=== PATIENT | male | born 1980 | race Caucasian/White ===

== ENCOUNTER → 2021-03-21 | Outpatient (CLI) | payer OTHER ==
[~2021-03-21] VITALS: Ht 177.8 cm; Wt 108.0 kg
[~2021-03-21] MED LIST: DEPO-TESTO100 MG/1 M IM; ZANAFLEX4 M1 PO
[2021-03-21 09:57] VITALS: BP 162/89
--- NOTE | 2021-03-21 10:21 | NUR ---
Pain Clinic Assessment: 1. History of Osteoarthritis: NONE History of Rheumatoid Arthritis: NONE 2. Height: 5 ft. 10 in. 177.8 cm. Weight: 238.0 lb. oz. 107.956 kg. Patient's BMI: 34.1 3. Vital Signs: BP: 162/89 Pulse: 95 Resp: 16 Temp: 02 Sat: 100 ECG Mon: 4. Pain Intensity: 6 5. Fall Risk: Dizziness: N Needs help standing or walking: N Fallen in the last 3 months: N Fall risk comments: 6. Patient on Blood Thinner: None 7. History of Hypertension: N 8. Opioid Therapy greater than 6 weeks: Opiate Contract Signed: 9. Risk Assessment Tool Provided: 0-LOW 10. Functional Assessment Tool: 11. Recreational Drug Use: Never Drug Type: Tobacco Use: Never Smoker Tobacco Type: Amount or Packs/day: How Many Years: Alcohol Use: Yes Frequency: Special Occasions Quant: 1-3
--- NOTE | 2021-03-22 10:47 | HPC ---
[facility] [place] [address] PAIN MANAGEMENT CONSULTATION Name: PETTY BEAL Room #: REG IRIS Felix.#: [id number] Admission: 03/21/21 Attend Phys: Dennis Bess DO Discharge: Date of : 80 Report #: [id number] THIS REPORT FOR: cc: DHARMESH KING [facility] - No family physician/PCP Dennis Bess DO ~ cc: Dharmesh King NP DATE OF SERVICE: 03/21/2021 REFERRING PROVIDER: Dharmesh King NP. CHIEF COMPLAINT: Axial back pain, right lower extremity pain with paresthesias. HISTORY OF PRESENT ILLNESS: As you know, the patient is a very pleasant 40-year-old male reporting longstanding history of low back pain that has progressively worsened. He states pain began 03/29/2019. The patient indicates pain mainly in the low back, which intermittently radiates down the right leg. He followed with Dr. Lyons who provided epidural injections under fluoroscopic guidance, which worked initially, but then stopped having any long-term efficacy. He underwent intraarticular facet injections which provided improvement, but only transiently. Due to lack of improvement with conservative treatment options, the patient was subsequently referred on to Neurosurgery for evaluation. The patient was seen by nurse practitioner, Dharmesh King in consultation on 02/14/2021 to discuss potential surgical options with the patient. It was determined at that visit, the patient should undergo further imaging and evaluation. Imaging was completed, which showed pars defects at the L5-S1 level. The patient was then referred to our clinic to discuss medial branch nerve blocks and radiofrequency lesioning to address facet arthropathy pain and to discuss the possibility of undergoing a spinal cord stimulator trial to help with his chronic lumbar radicular symptoms secondary to the findings at the L5-S1 level. The patient reports today his pain is continuous and constant. He describes the pain as more of an aching, stabbing and intermittent numbness and tingling. Places current pain score 6/10, daily average at 5/10, worst pain has been as 8/10. The patient states the pain is exacerbated with sitting or standing for any length of time. He states that bending over in a forward flexed position of the lumbar spine exacerbates symptoms. Pain is improved with stretching, hot tub therapies. The patient has been referred to our service to discuss treatment options including medial branch nerve blocks and radiofrequency lesioning to address axial back pain due to facet arthropathy and to discuss the possibility of undergoing spinal cord stimulator trial to address lumbar radiculopathy. PAST MEDICAL HISTORY: None. [address] [address] PAIN MANAGEMENT CONSULTATION Name: PETTY BEAL Room #: REG IRIS Pastrana#: [id number] Admission: 03/21/21 Attend Phys: Dennis Bess DO Discharge: Date of : 80 Report #: [id number] PAST SURGICAL HISTORY: Right knee arthroscopy. SOCIAL HISTORY: The patient denies tobacco, IV or illicit drug use. Admits to occasional alcohol beverage. He is retired. He retired on 07/29/2020. He is not working, not receiving workmen's compensation. He is in litigation in regards to pain. He is unaccompanied at today's visit. REVIEW OF SYSTEMS: Positive for low back pain, right lower extremity pain with paresthesias. All other review of systems negative per 12-point review of systems other than those listed in history of present illness. Pain impact score 47/70 indicating moderate interference of daily activities secondary to pain. ALLERGIES: No reported drug allergies. CURRENT MEDICATIONS: 1. Testosterone injections once weekly. 2. Tizanidine 4 mg dose 1 tab p.o. t.i.d. p.r.n. pain. IMAGING: MRI of lumbar spine obtained 06/09/2020 shows chronic appearing bilateral L5 spondylolysis resulting in an 8 mm anterolisthesis of L5 relative to S1. Mild annular disk bulge. No CT evidence of focal disk herniation or central canal stenosis. Bilateral foraminal disk osteophyte formation in conjunction with spondylolisthesis resulting in marked bilateral neural foraminal stenosis with impingement of the L5 nerve roots. PHYSICAL EXAMINATION: GENERAL: Well-developed, well-nourished, well-hydrated 40-year-old male. He appears his stated age, placing current pain score up to 5-6/10. HEENT: Normocephalic, atraumatic. Pupils equal, round and responsive to light. Speech is fluent. He is deemed an excellent historian. He is wearing a mask in compliance with COVID-19 regulations. LUNGS: Appear clear. No wheeze, rhonchi, no rales. CARDIOVASCULAR: Regular. No appreciable gallop, no rub. ABDOMEN: Soft, nontender. EXTREMITIES: Show no clubbing, no cyanosis and no edema. MUSCULOSKELETAL: Lower extremity strength equal and symmetrical, 5/5. Intact to light touch from L1 through S2 dermatomes. Seated straight leg raising negative. Supine straight leg raising positive on the right. ABEL test is negative. Modified Gaenslen's positive for axial low back pain. Ankle clonus negative. Babinski is negative. Deep tendon reflexes equal and symmetrical in the lower extremities 2+/4 at patella and Achilles. Lumbar provocation testing is met with slight increase in pain mainly with forward flexion, though extension also exacerbates symptoms. [facility] [place] [address] PAIN MANAGEMENT CONSULTATION Name: PETTY BEAL Room #: REG IRIS Zeina#: [id number] Admission: 03/21/21 Attend Phys: Dennis Bess DO Discharge: Date of : 80 Report #: [id number] ASSESSMENT: 1. Symptomatic lumbar radiculopathy. 2. Severe neural foraminal stenosis of lumbar spine. 3. Spondylolisthesis of L5 on S1. 4. Severe facet arthropathy of lumbar spine. 5. Chronic intractable pain. PLAN: 1. Based on today's physical exam and history the patient has provided, the description the patient uses in regards to pain as well as the 2 discrete locations of symptoms, 1 in the axial back due to facet arthropathy of lumbar spine, this is the source of the patient's axial back symptoms. He is also suffering from lumbar radiculopathy secondary to neural foraminal stenosis at the L5-S1 level with radiation along the L5 nerve root on the right side. We discussed with the patient the treatment options for both the axial back pain for which the patient is reporting the greatest amount of discomfort and his lumbar radiculopathy today. The following was discussed with the patient. We discussed physical therapy, stretching exercises and core strengthening as a treatment approach to address both facet arthropathy and his lumbar radiculopathy. We discussed medication management utilizing nonsteroidal anti-inflammatories for his baseline pain control and the addition of a neuropathic medication to address his lumbar radiculopathy. We discussed medial branch nerve blocks and radiofrequency lesioning as a treatment option to address axial back pain due to facet arthropathy at the L5-S1 level. We also discussed treatment for lumbar radiculopathy involving a spinal cord stimulator trial to address symptoms per the request of the Neurosurgery team. We also discussed surgical options with the patient, which they are trying to avoid. After reviewing risks and benefits of all proposed treatment options, the patient chose to move forward with medial branch nerve blocks to address axial back pain. 2. The patient will be sent for x-ray imaging of the lumbar spine. I am requesting flexion and extension films of the lumbar region to address the spondylolisthesis at L5-S1. We have received imaging of the lumbar spine in a static position. This does not provide us information whether or not a pathologic movement is occurring at this level. We will have the patient undergo the x-ray imaging review once available. 3. The patient and I discussed we will begin the authorization process for him to undergo medial branch nerve blocks to address the L3, L4, L5 medial branch nerves of the lumbar spine collectively. This would be done in a bilateral nature to address his axial back symptoms. We will begin that process immediately. It could take anywhere from 4-7 working days to receive this authorization. We will schedule the patient back once the authorization has been completed. 4. In regards to the patient's lumbar radiculopathy, the patient was referred to our clinic to discuss the possibility of undergoing spinal cord stimulator trial implantation given the fact that epidural injections in the past have been [address] [address] PAIN MANAGEMENT CONSULTATION Name: PETTY BEAL Room #: REG CLMallory Pastrana#: [id number] Admission: 03/21/21 Attend Phys: Dennis Bess DO Discharge: Date of : 80 Report #: [id number] unsuccessful in alleviating symptoms for custodial. He wishes to delay this option as he is more concerned about his axial back symptoms at this time, though will wish to revisit this issue if his axial back symptoms are improved with the medial branch nerve blocks and radiofrequency lesioning proposed today. 5. No medication changes made at today's visit. The patient will continue current medical therapy as prior prescribed. 6. We plan to see the patient back in followup visit once we have achieved authorization to undergo the medial branch nerve blocks bilaterally at the L3, L4, L5 levels. If these are unsuccessful, move forward with a radiofrequency lesioning. 7. We wish to thank nurse practitioner, Dharmesh King for the opportunity to see this patient in consultation. We will keep you apprised of his response to treatment as we address both his axial back pain due to facet arthropathy and his chronic lumbar radiculopathy involving low back and right lower extremity with possible spinal cord stimulator trial implantation. Again, we wish to thank you for the opportunity to see the patient in consultation. <ELECTRONICALLY SIGNED> By: Dennis Bess DO 03/22/21 1047 [id number] Dennis Bess DO /nt
== END ==
LOC: PAIN 03-14 10:26
PROVIDERS: ATTEND Anesthesiology Pain Medicine
DX: M54.16 Radiculopathy, lumbar region (principal); M48.061 Spinal stenosis, lumbar region without neurogenic claudication; M43.17 Spondylolisthesis, lumbosacral region; G89.4 Chronic pain syndrome; Z79.899 Other long term (current) drug therapy; Z79.891 Long term (current) use of opiate analgesic

== ENCOUNTER → 2021-04-25 | Outpatient (CLI) | payer OTHER ==
[~2021-04-25] VITALS: Ht 177.8 cm; Wt 110.0 kg
[2021-04-25 09:18] VITALS: BP 157/85
--- NOTE | 2021-04-25 09:36 | NUR ---
Pain Clinic Assessment: 1. History of Osteoarthritis: NONE History of Rheumatoid Arthritis: NONE 2. Height: 5 ft. 10 in. 177.8 cm. Weight: 242.6 lb. oz. 110.043 kg. Patient's BMI: 34.8 3. Vital Signs: BP: 157/85 Pulse: 96 Resp: 18 Temp: 02 Sat: 97 ECG Mon: 4. Pain Intensity: 6 5. Fall Risk: Dizziness: N Needs help standing or walking: N Fallen in the last 3 months: N Fall risk comments: 6. Patient on Blood Thinner: None 7. History of Hypertension: N 8. Opioid Therapy greater than 6 weeks: Opiate Contract Signed: 9. Risk Assessment Tool Provided: 0-LOW 10. Functional Assessment Tool: 47/ 11. Recreational Drug Use: Never Drug Type: Tobacco Use: Never Smoker Tobacco Type: Amount or Packs/day: How Many Years: Alcohol Use: Yes Frequency: Quant:
--- NOTE | 2021-04-26 07:58 | HPC ---
[facility] [place] [address] PAIN MANAGEMENT CONSULTATION Name: PETTY BEAL Room #: REG IRIS BarriosReneeHarrisRenee#: [id number] Admission: 04/25/21 Attend Phys: Dennis Bess DO Discharge: Date of : 80 Report #: [id number] THIS REPORT FOR: cc: DHARMESH KING [facility] - No family physician/PCP Dennis Bess DO ~ cc: Dharmesh King DATE OF SERVICE: 04/25/2021 REFERRING NURSE PRACTITIONER: Dharmesh King NP CHIEF COMPLAINT: Axial back pain and right lower extremity pain with paresthesias. HISTORY OF PRESENT ILLNESS: As you know, the patient is a very pleasant 40-year-old male with longstanding history of low back pain that has progressively worsened. He sought evaluation through neurosurgery who advised the patient's surgical options would not be recommended at this time. He was referred to our clinic to trial medial branch nerve blocks and possible radiofrequency lesioning to address his axial back symptoms. He has also been provided information about spinal cord stimulator to address the right lower extremity pain and paresthesias. Given the fact the patient is now a surgical candidate for lumbar radiculopathy. The patient was seen in consultation per the request of nurse practitioner Dharmesh King 03/21/2021 where he was diagnosed with severe facet arthropathy of lumbar spine, lumbosacral spondylosis with radicular pain leading to chronic and intractable symptoms involving the axial back. He was also given the diagnosis of symptomatic lumbar radiculopathy secondary to severe neural foraminal stenosis and given information in regards to spinal cord stimulator technology. He returns today in followup visit having received authorization to undergo the first in the series of medial branch blocks to address axial back pain due to facet arthropathy. If the medial branch blocks are successful in alleviating the patient's pain, we will then move forward with radiofrequency lesioning medial branch nerves of the lumbar spine. ALLERGIES: No reported drug allergies. CURRENT MEDICATIONS: Testosterone and tizanidine. SOCIAL HISTORY: The patient denies tobacco, IV or illicit drug use. Admits to occasional alcohol beverage. He is retired, retired in 07/29/2020. He is not working, not receiving workmen's compensation, unaccompanied today. IMAGING: No new imaging available. PHYSICAL EXAMINATION: [address] [address] PAIN MANAGEMENT CONSULTATION Name: PETTY BEAL Room #: REG [facility] [id number] Admission: 04/25/21 Attend Phys: Dennis Bess DO Discharge: Date of : 80 Report #: [id number] VITAL SIGNS: Blood pressure 157/85, pulse is 96, respiratory rate 18 and unlabored. The patient is 97% on room air. Height 5 feet 10 inches tall, weight 242.6 pounds, BMI calculated 34.8. GENERAL: Well-developed, well-nourished, well-hydrated 40-year-old male, appearing stated age, placing current pain score 6/10. HEENT: Normocephalic, atraumatic. Pupils equal, round and responsive to light. He is wearing a mask in compliance with COVCO-19 regulations. EXTREMITIES: Show no clubbing, no cyanosis, no edema. MUSCULOSKELETAL: Lower extremity strength is symmetrical again today 5/5. Seated straight leg raising is negative. Supine straight leg raising positive on the right. Fabere's test is negative. Modified Gaenslen's positive for axial low back pain. Lumbar provocation testing including extension, rotation, lateral flexion all intensify axial back pain. ASSESSMENT: 1. Severe facet arthropathy, lumbar spine. 2. Lumbosacral spondylosis of the lumbar spine. 3. Chronic symptomatic lumbar radiculopathy (nonsurgical). 4. Severe neural foraminal stenosis of lumbar spine. 5. Spondylolisthesis of L5 and S1. PLAN: 1. The patient returns today in followup visit to undergo medial branch blocks to address the L3, L4 and L5 medial branch nerves of the right lumbar spine. This is the source of the patient's current lumbar axial back pain. The patient has sought evaluation through neurosurgery and they have advised trial conservative options. He was seen in consultation in our clinic on 03/21/2021 and provided today's appointment after receiving authorizations to have the patient be able to undergo the medial branch blocks requested. He returns today with pain level of 6/10 requesting to undergo these injections in hopes of improving pain. The patient has been advised of the risks and the benefits of the procedure, states understood and wished to proceed. 2. The patient was given a prescription for x-ray imaging, I did wish to further evaluate a grade I spondylolisthesis and make sure that there was no significant pathologic movement. He did not undergo the imaging study. We will hold off on that imaging study as we begin the process of treatment, we may ultimately need that study if his symptoms do not improve. 3. The patient has requested and we have provided a refill of his tizanidine 4 mg dose 1 tab p.o. b.i.d. p.r.n. muscle spasm. I have given the patient #60 tablets to take as needed for muscle spasming. He is not to drive or operate heavy equipment while on that medication. 4. We plan to see the patient back in followup visit in 2 weeks. At that time, review the efficacy of the right L3, L4 and L5 medial branch nerve blocks provided today and determine if the next in the series of injection should be performed. If these are both successful in alleviating his low back symptoms, we would recommend radiofrequency lesioning of the right L3, L4 and L5 medial [facility] [address] [place] [address] PAIN MANAGEMENT CONSULTATION Name: LARISSA BEALH Room #: REG IRIS Pastrana#: [id number] Admission: 04/25/21 Attend Phys: Dennis Bess DO Discharge: Date of : 80 Report #: [id number] branch nerves. The patient is agreeable. PROCEDURE NOTE: DESCRIPTION OF PROCEDURE: Right L3, L4 and L5 lumbar medial branch blocks under fluoroscopic guidance. This is the first of 2 diagnostic medial branch blocks on the right side that the patient is undergoing. After obtaining written consent, the patient was taken back to the fluoroscopy suite and placed in a prone position on the fluoroscopy table with a pillow under the abdomen to decrease the lumbar lordosis. The skin overlying the lumbosacral area was prepped and draped in an aseptic fashion. The L4 transverse process corresponding the L3 medial branch nerve and the L5 transverse process corresponding the L4 medial branch nerve on the right side was visualized under AP fluoroscopy. The skin and subcutaneous tissue overlying the target site(s) of injection were anesthetized using 2 mL of 1% lidocaine. A 22 gauge 3.5 inch spinal needle with a bent tip was advanced under fluoroscopic guidance using a superior to inferior and lateral to medial approach to the dorsal, superior and medial aspect of the base of the transverse process(es). The needles were then directed ventral, medial and caudad to reach the target location(s). An oblique view facilitated needle placement with properly positioned needles(s) in the middle of the "eye" of the Hossein dog for the medial branch block(s). At each site the needle(s) rested on periosteum. After negative aspiration for heme or CSF, 1 mL of bupivacaine 0.5% was slowly injected at each site to avoid forcing the solution away from the target points(s). The needle(s) were then removed. The L5 dorsal ramus block on the right side was performed using a slightly oblique approach under fluoroscopic guidance, placing the needle within the groove between the sacral site and the superior articular process of S1. The needle rested on periosteum. After negative aspiration for heme or CSF, 0.0 mL of Omnipaque dye was injected at under live fluoroscopy, demonstrating absence of vascular uptake. After negative aspiration for heme or CSF, 1 mL of bupivacaine 0.5% was slowly injected to avoid forcing the solution away from the target point. The needle was then removed. Sterile bandages were placed over the injection site. There were no apparent complications. The patient tolerated the procedure well and was carefully escorted to the recovery room in stable condition. The [address] [address] PAIN MANAGEMENT CONSULTATION Name: PETTY BEAL Room #: REG IRIS Pastrana#: [id number] Admission: 04/25/21 Attend Phys: Dennis Bess DO Discharge: Date of : 80 Report #: [id number] was 6/10 before the procedure and 4/10, 10 minutes after the procedure. After meeting discharge criteria, the patient was discharged home. <ELECTRONICALLY SIGNED> By: Dennis Bess DO 04/26/21 0758 [id number] Dennis Bess DO /nt
== END | disposition home or self-care (01) ==
LOC: PAIN 06:54
PROVIDERS: ATTEND Anesthesiology Pain Medicine
DX: M47.816 Spondylosis without myelopathy or radiculopathy, lumbar region (principal); M47.817 Spondylosis without myelopathy or radiculopathy, lumbosacral region; M54.16 Radiculopathy, lumbar region; G89.29 Other chronic pain; M48.061 Spinal stenosis, lumbar region without neurogenic claudication; M43.16 Spondylolisthesis, lumbar region; Z98.890 Other specified postprocedural states; Z79.899 Other long term (current) drug therapy

== ENCOUNTER → 2021-05-09 | Outpatient (CLI) | payer OTHER ==
[~2021-05-09] VITALS: Ht 177.8 cm; Wt 110.5 kg
[2021-05-09 09:16] VITALS: BP 165/82
--- NOTE | 2021-05-09 09:26 | NUR ---
Pain Clinic Assessment: 1. History of Osteoarthritis: NONE History of Rheumatoid Arthritis: NONE 2. Height: 5 ft. 10 in. 177.8 cm. Weight: 243.6 lb. oz. 110.496 kg. Patient's BMI: 35.0 3. Vital Signs: BP: 165/82 Pulse: 94 Resp: 20 Temp: 02 Sat: 98 ECG Mon: 4. Pain Intensity: 7 5. Fall Risk: Dizziness: N Needs help standing or walking: N Fallen in the last 3 months: N Fall risk comments: 6. Patient on Blood Thinner: None 7. History of Hypertension: N 8. Opioid Therapy greater than 6 weeks: N Opiate Contract Signed: 9. Risk Assessment Tool Provided: 0-LOW 10. Functional Assessment Tool: 11. Recreational Drug Use: Never Drug Type: Tobacco Use: Never Smoker Tobacco Type: Amount or Packs/day: How Many Years: Alcohol Use: Yes Frequency: Quant:
--- NOTE | 2021-05-09 14:38 | HPC ---
[facility] [address] [place] [address] PAIN MANAGEMENT CONSULTATION Name: PETTY BEAL Room #: REG IRIS BarriosReneeHarrisRenee#: [id number] Admission: 05/09/21 Attend Phys: Dennis Bess DO Discharge: Date of : 80 Report #: [id number] THIS REPORT FOR: cc: DHARMESH KING FAM - No family physician/PCP Dennis Bess DO ~ cc: Dharmesh King DATE OF SERVICE: 05/09/2021 CHIEF COMPLAINT: Axial back pain, right lower extremity pain. HISTORY OF PRESENT ILLNESS: As you know, the patient is a very pleasant 40-year-old male with longstanding history of chronic low back pain, right buttock and posterolateral thigh pain. He has successfully completed medial branch nerve blocks to address severe facet arthropathy and lumbosacral spondylosis of the lumbar region on the right with good benefit. He reports improvement in symptoms of greater than 70-80% with the medial branch nerve blocks. He received about a 6-hour improvement in overall pain with those injections. He returns today in followup visit for the 2nd in the series of medial branch nerve blocks. If these are then successful, plan is to move forward with radiofrequency lesioning of the L3, L4, L5 medial branch nerves on the right side. The patient has returned today with a pain level of 7/10, requesting medial branch nerve block to address the L3, L4, L5 medial branch nerves today. ALLERGIES: No known drug allergies. CURRENT MEDICATIONS: Tizanidine and testosterone. SOCIAL HISTORY: The patient denies tobacco, IV, or illicit drug use. Admits to occasional alcohol beverage. He is retired, retired in 07/2020, is not receiving workmen's compensation, unaccompanied today. IMAGING: No new imaging available. PHYSICAL EXAMINATION: VITAL SIGNS: Blood pressure 165/82, pulse is 95, respiratory rate 20, unlabored. The patient is 98% on room air. Height 5 feet 10 inches tall, weight 243.6 pounds, BMI calculated 35.0. GENERAL: Well-developed, well-nourished, well-hydrated exogenously obese 40-year-old male, appearing stated age, pain is rated today 7/10. HEENT: Normocephalic, atraumatic. Pupils are round and responsive, wearing a mask in compliance with COVID-19 regulations and hospital restrictions. EXTREMITIES: Show no clubbing, no cyanosis, no edema. MUSCULOSKELETAL: Lower extremity strength is symmetrical again today 5/5. Modified Gaenslen's positive for axial low back pain[place] [address] PAIN MANAGEMENT CONSULTATION Name: PETTY BEAL Room #: [facility]..#: [id number] Admission: 05/09/21 Attend Phys: Dennis Bess DO Discharge: Date of : 80 Report #: [id number] testing including extension, rotation, lateral flexion to the right increases axial back symptoms. Straight leg raising is negative in the seated position, positive in the supine position. ASSESSMENT: 1. Severe facet arthropathy of the lumbar spine. 2. Lumbosacral spondylosis of the lumbar spine. 3. Chronic lumbar radiculopathy, nonsurgical. 4. Severe neural foraminal stenosis of lumbar spine. 5. Spondylolisthesis of L5 and S1. PLAN: 1. The patient returns today in followup visit to undergo medial branch nerve blocks to address the right L3, L4, L5 medial branch nerves respectively. He underwent the medial branch blocks at the last visit, reporting upwards of 6 hours of improvement of greater than 75-80% of his axial back symptoms. He is very pleased with response to that procedure, returning today for the second in the series of these procedures. If this then again provides excellent benefit, move forward with radiofrequency lesioning of the medial branch nerve at L3, L4, L5 on the right side. The patient has been advised risks and benefits of the procedure, states understood and wished to proceed. 2. No medication changes made at today's visit. The patient will continue current medication management as previously prescribed. 3. We plan to see the patient back in followup visit in 2 weeks, assuming he received excellent benefit with the medial branch blocks today for radiofrequency lesioning of the right L3, L4, L5 medial branch nerves respectively. PROCEDURE NOTE: DESCRIPTION OF PROCEDURE: Right L3, L4, and L5 medial branch blocks under fluoroscopic guidance, #2 in the series. This is the 2nd of 2 diagnostic medial branch blocks on the right side that the patient is undergoing. After obtaining written consent, the patient was taken back to the fluoroscopy suite and placed in a prone position on the fluoroscopy table with a pillow under the abdomen to decrease the lumbar lordosis. The skin overlying the lumbosacral area was prepped and draped in an aseptic fashion. The L4 transverse process corresponding the L3 medial branch nerve and the L5 transverse process corresponding the L4 medial branch nerve on the right side was visualized under AP fluoroscopy. The skin and subcutaneous tissue overlying the target site(s) of injection were anesthetized using 2 mL of 1% lidocaine. A 22 gauge 3.5 inch spinal needle with a bent tip was advanced under fluoroscopic guidance using a superior to inferior and lateral to medial approach to the [address] [address] PAIN MANAGEMENT CONSULTATION Name: PETTY BEAL Room #: TOSHA Pastrana#: [id number] Admission: 05/09/21 Attend Phys: Dennis Bess DO Discharge: Date of : 80 Report #: [id number] dorsal, superior and medial aspect of the base of the transverse process(es). The needles were then directed ventral, medial and caudad to reach the target location(s). An oblique view facilitated needle placement with properly positioned needles(s) in the middle of the "eye" of the Hossein dog for the medial branch block(s). At each site the needle(s) rested on periosteum. After negative aspiration for heme or CSF, 1 mL of bupivacaine 0.5% was slowly injected at each site to avoid forcing the solution away from the target points(s). The needle(s) were then removed. The L5 dorsal ramus block on the right side was performed using a slightly oblique approach under fluoroscopic guidance, placing the needle within the groove between the sacral site and the superior articular process of S1. The needle rested on periosteum. After negative aspiration for heme/CSF, 1 mL of bupivacaine 0.5% was slowly injected to avoid forcing the solution away from the target point. The needle was then removed. Sterile bandages were placed over the injection site. There were no apparent complications. The patient tolerated the procedure well and was carefully escorted to the recovery room in stable condition. The VAS was 7/10 before the procedure and 5/10, 10 minutes after the procedure. After meeting discharge criteria, the patient was discharged home. <ELECTRONICALLY SIGNED> By: Dennis Bess DO 05/09/21 1438 [id number] 1307 Dennis Bess DO /nt
== END | disposition home or self-care (01) ==
LOC: PAIN 06:51
PROVIDERS: ATTEND Anesthesiology Pain Medicine
DX: M47.816 Spondylosis without myelopathy or radiculopathy, lumbar region (principal); M47.817 Spondylosis without myelopathy or radiculopathy, lumbosacral region; M48.061 Spinal stenosis, lumbar region without neurogenic claudication; M54.59 Other low back pain; M43.16 Spondylolisthesis, lumbar region; G89.29 Other chronic pain; Z98.890 Other specified postprocedural states

== ENCOUNTER → 2021-05-31 | Outpatient (CLI) | payer OTHER ==
[~2021-05-31] VITALS: Ht 177.8 cm; Wt 106.3 kg
[2021-05-31 09:34] VITALS: BP 137/96
--- NOTE | 2021-05-31 09:41 | NUR ---
Pain Clinic Assessment: 1. History of Osteoarthritis: NONE History of Rheumatoid Arthritis: NONE 2. Height: 5 ft. 10 in. 177.8 cm. Weight: 234.4 lb. oz. 106.323 kg. Patient's BMI: 33.6 3. Vital Signs: BP: 137/96 Pulse: 103 Resp: 14 Temp: 02 Sat: 98 ECG Mon: 4. Pain Intensity: 6-7 5. Fall Risk: Dizziness: N Needs help standing or walking: N Fallen in the last 3 months: N Fall risk comments: 6. Patient on Blood Thinner: None 7. History of Hypertension: N 8. Opioid Therapy greater than 6 weeks: N Opiate Contract Signed: 9. Risk Assessment Tool Provided: 0-LOW 10. Functional Assessment Tool: 47/ 11. Recreational Drug Use: Never Drug Type: Tobacco Use: Never Smoker Tobacco Type: Amount or Packs/day: How Many Years: Alcohol Use: Yes Frequency: Quant:
--- NOTE | 2021-06-06 09:37 | HPC ---
[facility] [place] [address] PAIN MANAGEMENT CONSULTATION Name: PETTY BEAL Room #: REG IRIS Felix.#: [id number] Admission: 05/31/21 Attend Phys: Dennis Bess DO Discharge: Date of : 80 Report #: [id number] THIS REPORT FOR: cc: DHARMESH KING FAM - No family physician/PCP Dennis Bess DO ~ cc: LÁZARO Orellana DATE OF SERVICE: 05/31/2021 REFERRING PHYSICIAN: Nurse practitionerDharmesh. CHIEF COMPLAINT: Axial back pain, right lower extremity pain. HISTORY OF PRESENT ILLNESS: As you know, the patient is a very pleasant 41-year-old male with longstanding history of chronic right low back pain, right buttock and posterolateral thigh pain. He successfully completed medial branch nerve blocks with improvement in symptoms of greater than 70% to 80% with the initial block and 80% improvement with the second block. Returning today to undergo radiofrequency lesioning of the L3, L4, L5 medial branch nerves on the right side. The patient places his current pain score at 6-7/10. There has been no injury or trauma that may have led to symptom continuation. There have been no changes in his medication management since our last visit, precluding us from undergoing the radiofrequency lesioning procedure today. ALLERGIES: No known drug allergies. CURRENT MEDICATIONS: Tizanidine and testosterone. SOCIAL HISTORY: The patient denies tobacco, IV or illicit drug use. Admits to occasional alcohol beverage. He retired in 07/2020, unaccompanied today. IMAGING: No new imaging available. PHYSICAL EXAMINATION: VITAL SIGNS: Blood pressure 137/96, pulse 103, respiratory rate 14 and unlabored. The patient 98% on room air. Height 5 feet 10 inches tall, weight 234.4 pounds, BMI calculated 33.6. GENERAL: Well-developed, well-nourished, well-hydrated 41-year-old male appearing stated age, pain is rated today 6-7/10. HEENT: Normocephalic, atraumatic. Pupils equal, round and responsive. He is wearing a mask in compliance with COVID-19 regulations. EXTREMITIES: Show no clubbing, no cyanosis, no edema. MUSCULOSKELETAL: Lower extremity strength equal and symmetrical 5/5. Seated straight leg raising negative. Supine straight leg raising negative. Fabere's test is negative. Modified Gaenslen's positive for axial back pain. Lumbar provocation testing is met with increasing right axial back pain consistent with [facility] [address] [place] [address] PAIN MANAGEMENT CONSULTATION Name: PETTY BEAL Room #: REG [facility]#: [id number] Admission: 05/31/21 Attend Phys: Dennis Bess DO Discharge: Date of : 80 Report #: [id number] facet arthropathy at L4-L5 and L5-S1. ASSESSMENT: 1. Severe facet arthropathy, lumbar spine. 2. Lumbosacral spondylosis without radiculopathy. 3. Chronic low back pain. 4. Spondylolisthesis of L5 on S1. PLAN: 1. The patient returns today in followup visit having successfully completed medial branch blocks x2 with a greater than 70% improvement to 80% improvement in overall pain with the initial series of injections and up to 80% improvement in overall pain with the second set and returning today for radiofrequency lesioning of the right L3, L4, L5 medial branch nerves. The patient has been advised risks and benefits of this procedure. These risks include but are not necessarily limited to bleeding, bruising, infection, worsening pain, no relief of pain, also risk of temporary or permanent muscle weakness, temporary or permanent nerve damage, possible paralysis, and . The patient states understood and wished to proceed. 2. No medication changes made at today's visit. The patient will continue current medical therapy as prior prescribed. 3. Plan to see the patient back in followup visit on an as needed basis. We are hopeful the patient will see good improvement in symptoms with the radiofrequency lesioning process provided today. PROCEDURE NOTE: DESCRIPTION OF PROCEDURE: Right L3, L4, L5, lumbar medial branch nerve radiofrequency ablations under fluoroscopic guidance. The procedure was explained. Informed consent was obtained from the patient. The patient was informed of the risks of procedure including infection, bleeding, nerve damage, failure to produce pain relief, and postoperative discomfort lasting for several weeks. The patient signed the informed consent paperwork and was then taken to the fluoroscopy suite, placed in a prone position with pillow under abdomen to decrease lumbar lordosis. Skin overlying lumbosacral area then prepped and draped in aseptic fashion. AP imaging of the lumbar spine was used to identify the L2 through L5 vertebral bodies and the sacral ala. The target locations of the L4 transverse process on the right, corresponding the L3 medial branch nerve and the L5 transverse process on the right, corresponding the L4 medial branch nerve were established. Using a 27-gauge 1-1/4-inch needle, skin wheals were placed at the junction of the transverse process and the respective superior articular process. We were careful to only anesthetize the skin and not the deep tissues. The radiofrequency lesioning needles were then advanced under fluoroscopic guidance [address] [address] PAIN MANAGEMENT CONSULTATION Name: PETTY BEAL Room #: REG IRIS Pastrana#: [id number] Admission: 05/31/21 Attend Phys: Dennis Bess DO Discharge: Date of : 80 Report #: [id number] using a superior, inferior, lateral to medial approach to the dorsal, superior and medial aspect of the base of the transverse processes. The needles were then directed caudad to reach target locations. An oblique view facilitated needle placement with properly positioned needles within the middle of the "eye" of the Hossein dog. At each site, needles rested on periosteum. Touching the bone initially assured, the needles were not placed too deeply. Radiofrequency lesioning of the L5 medial branch nerve on the right side was performed using a superior, inferior, lateral to medial approach under fluoroscopic guidance, placing the needle within the groove between the sacral ala and the superior articular process of S1. Needle rested on periosteum. Stimulation was performed at each level once the cannulas were in position and sensory stimulation was performed at 0.15, 0.4 and 0.1 with an impedance of 210, 247 and 304 at 50 Hz for the L3, L4, L5 medial branch nerves respectively. Good stimulation of lumbar and buttock region was elicited indicating correct alignment with the posterior primary ramus. Absence of lower motor fasciculation was noted at 3 volts, 2 Hz stimulation during testing of the L3, L4, L5 medial branch nerves respectively. Following this, affirmation of dissociation between sensory and motor stimulation negative aspiration noted at all 3 levels for heme and cerebrospinal fluid. Next, 1 mL of bupivacaine 0.5% was injected slowly. After a 90-second delay, lesions were performed at a temperature of 80 degrees Celsius for 90 seconds. After the needle tips had cooled, 1 mL solution containing 1 mL 40 mg per mL, 40 mg total triamcinolone along with 3 mL of bupivacaine 0.5% injected slowly. [place] were retracted longterm, flushed with 1 mL of 1% lidocaine and removed. Sterile bandage placed over injection site. There were no new motor deficits present in lower extremity following procedure. The patient tolerated the procedure well, carefully escorted to recovery room in stable condition. No apparent complications. After meeting discharge criteria, the patient discharged home. <ELECTRONICALLY SIGNED> By: Dennis Bess DO 06/06/21 0937 0725 0814 Dennis Bess DO /nt
== END | disposition home or self-care (01) ==
LOC: PAIN 07:08
PROVIDERS: ATTEND Anesthesiology Pain Medicine
DX: M47.816 Spondylosis without myelopathy or radiculopathy, lumbar region (principal); M47.817 Spondylosis without myelopathy or radiculopathy, lumbosacral region; M43.16 Spondylolisthesis, lumbar region; M54.59 Other low back pain; G89.29 Other chronic pain; Z98.890 Other specified postprocedural states

== ENCOUNTER → 2021-06-21 | Outpatient (CLI) | payer OTHER ==
[~2021-06-21] VITALS: Ht 177.8 cm; Wt 106.1 kg
[~2021-06-21] MED LIST changes: +NABUMETONE 500500 M2 PO
[2021-06-21 09:57] VITALS: BP 147/93
--- NOTE | 2021-06-21 10:03 | NUR ---
Pain Clinic Assessment: 1. History of Osteoarthritis: NONE History of Rheumatoid Arthritis: NONE 2. Height: 5 ft. 10 in. 177.8 cm. Weight: 234.0 lb. oz. 106.142 kg. Patient's BMI: 33.6 3. Vital Signs: BP: 147/93 Pulse: 120 Resp: 18 Temp: 02 Sat: 95 ECG Mon: 4. Pain Intensity: 6-8 5. Fall Risk: Dizziness: N Needs help standing or walking: N Fallen in the last 3 months: N Fall risk comments: 6. Patient on Blood Thinner: None 7. History of Hypertension: N 8. Opioid Therapy greater than 6 weeks: N Opiate Contract Signed: 9. Risk Assessment Tool Provided: 0-LOW 10. Functional Assessment Tool: 47/ 11. Recreational Drug Use: Never Drug Type: Tobacco Use: Never Smoker Tobacco Type: Amount or Packs/day: How Many Years: Alcohol Use: Yes Frequency: Special Occasions Quant: 1-2 DRINKS
--- NOTE | 2021-06-27 08:44 | HPC ---
[facility] [place] [address] PAIN MANAGEMENT CONSULTATION Name: PETTY BEAL Room #: REG IRIS Felix.#: [id number] Admission: 06/21/21 Attend Phys: Dennis Bess DO Discharge: Date of : 80 Report #: [id number] THIS REPORT FOR: cc: DHARMESH KING Physician not on staff Dennis Bess DO ~ cc: Dharmesh King NP DATE OF SERVICE: 06/21/2021 REFERRING PHYSICIAN: Nurse practitioner, Dharmesh King. CHIEF COMPLAINT: Axial back pain, right buttock pain. HISTORY OF PRESENT ILLNESS: As you know, the patient is a very pleasant 41-year-old male who has had a longstanding history of chronic low back pain, right buttock and posterolateral thigh pain. He completed successfully medial branch nerve blocks with 70% improvement in overall pain with the first block and up to 70% improvement in overall pain with the second block. He underwent radiofrequency lesioning on 05/31/2021. Unfortunately, the lesioning did not provide much in the way of improvement. He had reduction of about 25% overall. He returns today in followup visit complaining of pain at a level of 6-8/10, wanted to discuss treatment options. The patient denies injury, trauma or any changes in medication management since our last visit. ALLERGIES: No known drug allergies. CURRENT MEDICATIONS: Tizanidine and testosterone. SOCIAL HISTORY: The patient denies tobacco. Denies IV or illicit drug use. Admits to occasional alcohol beverage. He retired in 07/2020. He is unaccompanied at today's visit. IMAGING: No new imaging available. PHYSICAL EXAMINATION: VITAL SIGNS: Blood pressure 147/93, pulse 120, respiratory rate 18 and unlabored. The patient is 95% on room air. Height 5 feet 10 inches tall, weight 234 pounds, BMI calculated 33.6. GENERAL: Well-developed, well-nourished, well-hydrated 41-year-old male appearing stated age, pain is rated anywhere from 6-8/10. HEENT: Normocephalic, atraumatic. Pupils equal, round and responsive to light. Extraocular muscles are intact. He is wearing a mask in compliance with COVID-19 regulations and hospital policy. EXTREMITIES: Show no clubbing, no cyanosis. No appreciable edema. MUSCULOSKELETAL: Seated straight leg raising negative. Supine straight leg raising negative. ABEL test is negative. Modified Gaenslen is positive for [facility] [address] [place] [address] PAIN MANAGEMENT CONSULTATION Name: PETTY BEAL Room #: REG [facility]#: [id number] Admission: 06/21/21 Attend Phys: Dennis Bess DO Discharge: Date of : 80 Report #: [id number] axial back pain. Lumbar provocation testing with rotation and lateral flexion to the right intensify the patient's symptoms. Gait is normal. Muscle bulk and tone is equal and symmetrical in lower extremities. Deep tendon reflexes equal and symmetrical with downgoing Babinski's. ASSESSMENT: 1. Severe facet arthropathy of lumbar spine. 2. Lumbosacral spondylosis without radiculopathy or myelopathy. 3. Chronic low back pain. 4. Spondylolisthesis of L5 on S1. PLAN: 1. The patient returns today in followup visit, unfortunately noticing minimal benefit with the radiofrequency lesioning of the medial branch nerves at L3, L4, L5. This is unfortunate as the patient did very well with the medial branch nerve blocks reporting greater than 70% improvement with both of those blocks. Unfortunately, the radiofrequency lesioning process did not provide the benefit. We are hoping the patient would see, maybe 20-25% improvement overall. The patient has returned today to discuss treatment options. He has suffered no new injury or trauma. This made no changes in his treatment since our last visit. 2. The patient and I discussed that his symptoms appear to be related more to the periosteal involvement than the medial branch nerves and signal. The fact that he feels if he "has to pop his back" would indicate the spondylolisthesis and the periosteal involvement is much more pronounced than originally believed. The medial branch nerves worsening signal in this case approximately 20-25% of the pain generation, the remaining is on the periosteal level and is not amenable to procedural treatments. We discussed with the patient the pathophysiology of his disease process and the reason why his symptoms remain. Unfortunately, he did not see the long-term benefit with radiofrequency we typically see with the patients who have symptoms mediated on the medial branch nerves. 3. The patient and I discussed that treatment options for remaining axial back pain due to the physical findings and the MRI imaging would be the following treatment options. We discussed physical therapy, stretching exercise, core strengthening and a concerted effort at weight loss. The standard of care for facet arthropathy pain. We discussed initiation of a nonsteroidal anti-inflammatory on a consistent basis and continuation of physical therapy. We discussed surgical options with the patient as well. The patient was referred to our clinic to discuss spinal cord stimulators to address this issue, but cord stimulators are not indicated for facet arthropathy or axial back pain. They are only indicated for failed back syndrome, lumbar radiculopathy and complex regional pain syndrome. The patient's [employer] payer could be queried on whether or not they would be willing to trial the device, though our experience with device placement for axial back pain is minimally effective. We also discussed with the patient traditional surgical options, which would include possible fusion. He is going to consider that option, though he is [address] [address] PAIN MANAGEMENT CONSULTATION Name: PETTY BEAL Room #: REG [facility] Elvira.#: [id number] Admission: 06/21/21 Attend Phys: Dennis Bess DO Discharge: Date of : 80 Report #: [id number] hopeful to avoid that more aggressive treatment approach. 4. The patient will be started on nabumetone 500 mg dose. I wished for him to take that 3 times a day with meals. He will watch for dyspepsia, worsening of blood pressure, lower extremity edema with use of therapy. If he has any side effects, discontinue immediately and call for further instructions. A prescription for #90 tablets with 2 refills was sent to his local pharmacy via e-scribe. 5. We plan to see the patient back in followup visit on an as-needed basis. He can follow up with the referring nurse practitioner, Dharmesh King to discuss the options for treatment from a surgical standpoint. We will keep you apprised if he does return, what his response to the adjustments in treatment were today. <ELECTRONICALLY SIGNED> By: Dennis Bess DO 06/27/21 0844 [id number] 1331 Dennis Bess DO /nt
== END ==
LOC: PAIN 09:38
PROVIDERS: ATTEND Anesthesiology Pain Medicine
DX: M47.817 Spondylosis without myelopathy or radiculopathy, lumbosacral region (principal); M47.816 Spondylosis without myelopathy or radiculopathy, lumbar region; G89.29 Other chronic pain; M43.17 Spondylolisthesis, lumbosacral region